=== PATIENT | male | born 1985 | race Caucasian/White ===

== ENCOUNTER 2020-01-07 12:49 | Outpatient (CLI) | payer BC, SELFPAY ==
--- NOTE | ~2020-01-07 | US_ITS ---
EXAMINATION: US soft tissue chest INDICATION: Palpable mass of the right axilla TECHNIQUE: High-resolution ultrasound is performed in the right axilla in the area of clinical intere st COMPARISON: None available FINDINGS: There is a 3.8 x 1.5 x 3.7 cm circumscribed isoechoic mass in the right axilla correspondin g to the palpable abnormality of concern. No additional cystic or solid mass is identified. IMPRESSION: 1. 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 Reviewed, dictated and finalized at location A.
== END 2020-01-07 12:50 | disposition home or self-care (01) ==
PROVIDERS: PCP Family Medicine Sports Medicine; Visit Provider Surgery
DX: R22.2 Localized swelling, mass and lump, trunk (principal)
CPT/HCPCS: 76604